=== PATIENT | male | born 1950 | race Hispanic/Latino ===

== ENCOUNTER 2016-10-30 08:51 | Observation (INO) | payer MEDICARE, OTHER ==
[2016-10-30 08:59] VITALS: BMI 24.9
[2016-10-30] MEDS ORDERED: Sodium Chloride 0.9% 1,000 ML IV STA (09:36)
--- NOTE | 2016-10-30 09:42 | ED PDOC ---
HPI: Male Pain Time Seen by Provider: 10/30/16 09:18 History Per: Patient (states that starting about 2 days ago he has experienced burning sensation on urination that is associated with chills. He also noticed bloody discharge stains on his underwear. He has had history of prostatitis in the past that has been treated with Tequin. The discomfort is located in the back area and is noticeable present at the end of urination. He has noticed generalized weakness and not being steady when he stands. States that he is followed by a urologist in [facility] (Dr. Leyva) who checks him every 6 months. His last visit there was in May 2016. His last checkup with his PCP was in Mar 2016. ) History/Exam Limitations: no limitations Onset/Duration Of Symptoms: Days (2), Persistent Current Symptoms Are (Timing): Still Present Severity: Moderate Quality Of Discomfort: Burning Associated Symptoms: Chills, Nausea, Loss Of Appetite, Urinary Symptoms (bloody discharge). denies: Vomiting, Diarrhea, Back Pain, Chest Pain, Constipation Past Medical History Reviewed: Historical Data, Nursing Documentation, Vital Signs Vital Signs: Last Vital Signs Temp 100.3 F H 10/30/16 08:57 Pulse 96 H 10/30/16 08:57 Resp BP 121/60 10/30/16 08:57 Pulse Ox 98 10/30/16 08:57 - Medical History Other PMH: prostatitis, prostate disease - Surgical History Other surgeries: bilaterally inguinal herniorrhaphy; nasal septal deviation correction - Family History Family History: States: No Known Family Hx - Living Arrangements Living Arrangements: With Family - Social History Current smoker - smoking cessation education provided: No Alcohol: None Drugs: Denies - Allergies Allergies/Adverse Reactions: Allergies Allergy/AdvReac Type Severity Reaction Status Date / Time No Known Allergies Allergy Verified 10/30/16 09:34 Review of Systems ROS Statement: Except As Marked, All Systems Reviewed And Found Negative Constitutional: Positive for: Chills, Weakness, Malaise Eyes: Negative for: Vision Change Cardiovascular: Negative for: Chest Pain, Palpitations, Orthopnea Respiratory: Negative for: Cough, Shortness of Breath Gastrointestinal: Positive for: Nausea. Negative for: Vomiting, Abdominal Pain , Diarrhea, Melena, Hematochezia, Hematemesis, Rectal Pain Genitourinary Male: Positive for: Dysuria, Penile Discharge (bloody only with urine; not with ejaculation). Negative for: Frequency, Incontinence, Scrotal Pain Musculoskeletal: Negative for: Neck Pain, Shoulder Pain, Back Pain Skin: Negative for: Rash Neurological: Positive for: Weakness. Negative for: Change in Speech, Altered Mental Status Physical Exam - Reviewed Nursing Documentation Reviewed: Yes Vital Signs Reviewed: Yes - Physical Exam Appears: Positive for: Well, Non-toxic, No Acute Distress Head Exam: Positive for: ATRAUMATIC, NORMAL INSPECTION, NORMOCEPHALIC Skin: Positive for: Normal Color, Warm, DRY Eye Exam: Positive for: EOMI, Normal appearance, PERRL ENT: Positive for: Normal ENT Inspection, Other (lips and tongue dry) Neck: Positive for: Normal, Painless ROM Cardiovascular/Chest: Positive for: Regular Rate, Rhythm Respiratory: Positive for: CNT, Normal Breath Sounds Gastrointestinal/Abdominal: Positive for: Normal Exam, Bowel Sounds, Soft Male Genital Exam: Positive for: normal genitalia. Negative for: bleeding, erythema, hernia mass, inguinal tenderness, scrotum tenderness (R), scrotum tenderness (L), testicular tenderness (R), testicular tenderness (L), urethral discharge Back: Positive for: Normal Inspection Extremity: Positive for: Normal ROM Neurologic/Psych: Positive for: Alert, Oriented - Laboratory Results Result Diagrams: 10/30/16 10:10 10/30/16 10:10 - ECG O2 Sat by Pulse Oximetry: 98 Medical Decision Making Medical Decision Making: Patient has low grade temp, still has chills. His WBC is elevated. He still feels tired and out of it. Will admit to med service for observation, IVF Disposition - Clinical Impression Clinical Impression: Dehydration syndrome, Prostatitis, Hematuria - Patient ED Disposition Is Patient to be Admitted: Yes Doctor Will See Patient In The: Hospital - Disposition Disposition: Transfer of Care Disposition Time: 10:30 Condition: GUARDED - Pt Status Changed To: Hospital Disposition Of: Observation - POA Present On Arrival: None
[2016-10-30 10:17] LABS: BASO # 0.1 K/uL (0.0-0.2); BASO % 0.5 % (0.0-2.0); HEMATOCRIT 43.5 % (35.0-51.0); LYMPH % 7.6 % (20.0-40.0); MEAN CELL VOLUME 89.5 fl (80.0-94.0); MEAN CORPUSCULAR HEMOGLOBIN 30.5 pg (27.0-31.0); MEAN CORPUSCULAR HGB CONC 34.1 g/dL (33.0-37.0); MEAN PLATELET VOLUME 8.3 fl (7.2-11.7); MONO # 0.7 K/uL (0.0-0.8); MONO % 4.9 % (0.0-10.0); NEUT # 11.8 K/uL (1.8-7.0); PLATELET COUNT 189 K/uL (130-400); RED CELL DISTRIBUTION WIDTH 12.9 % (11.5-14.5); WHITE BLOOD COUNT 13.6 K/uL (4.8-10.8)
[2016-10-30 10:19] LABS: VENOUS BLOOD GAS BASE EXCESS 0.8 mmol/L (0.0-2.0); VENOUS BLOOD GAS PCO2 53 mmHg (40-60); VENOUS BLOOD PH 7.33 (7.32-7.43)
[2016-10-30 10:30] LABS: BLOOD UREA NITROGEN 19 mg/dl (9-20); CALCIUM 9.4 mg/dL (8.4-10.2); CARBON DIOXIDE 23 mmol/L (22-30); CHLORIDE 104 mmol/L (98-107); GFR AFRICAN-AMERICAN > 60; GLUCOSE,RANDOM 99 mg/dL (75-110); POTASSIUM 4.5 MMOL/L (3.6-5.0); RBC URINE 71 /hpf (0-3); RENAL EPITHELIAL < 1 /hpf (0-3); SODIUM 137 mmol/l (132-148); URINE BILIRUBIN NEGATIVE (NEGATIVE); URINE BLOOD MODERATE (NEGATIVE); URINE COLOR YELLOW (YELLOW); URINE GLUCOSE (UA) NEG (Normal); URINE KETONE NEGATIVE (NEGATIVE); URINE LEUKOCYTE ESTERASE NEG Leu/uL (Negative); URINE PROTEIN 30 mg/dL (NEGATIVE); URINE UROBILINOGEN 0.2-1.0 mg/dL (0.2-1.0); WBC URINE 1 /hpf (0-5)
[2016-10-30] MEDS ORDERED: levoFLOXacin 750 mg in D5W 150 ML BAG IVPB STA (10:41)
[2016-10-30] MEDS ORDERED: levoFLOXacin 750 mg in D5W 750 MG/150 ML BAG IVPB ONE (10:44)
--- NOTE | 2016-10-30 11:16 | RAD ---
HISTORY: admission COMPARISON: 02/27/2010 FINDINGS: LUNGS: There is linear atelectasis/ scarring in the left lower lobe. No focal consolidation. PLEURA: No significant pleural effusion identified, no pneumothorax apparent. CARDIOVASCULAR: Normal. OSSEOUS STRUCTURES: No significant abnormalities. VISUALIZED UPPER ABDOMEN: Normal. OTHER FINDINGS: None. IMPRESSION: No active pulmonary disease.
[2016-10-30 12:39] LABS: NEUTROPHIL 83 % (42-75); REACTIVE LYMPHOCYTES 1 % (0-0); TOTAL CELLS COUNTED 100
[2016-10-30] MEDS: Sodium Chloride 0.45% 1,000 ML IV SCH ×2 (14:19→21:59)
[2016-10-30] MEDS ORDERED: Pneumococcal 23-Valent Vaccine IM ONE (15:31)
[2016-10-31] MEDS: Sodium Chloride 0.45% 1,000 ML IV SCH (06:23)
[2016-10-31 07:22] LABS: BASO % 0.7 % (0.0-2.0); EOS % 0.5 % (0.0-4.0); HEMATOCRIT 39.9 % (35.0-51.0); LYMPH # 1.3 K/uL (1.0-4.3); LYMPH % 17.7 % (20.0-40.0); MEAN CELL VOLUME 88.2 fl (80.0-94.0); MEAN CORPUSCULAR HEMOGLOBIN 30.7 pg (27.0-31.0); MEAN CORPUSCULAR HGB CONC 34.8 g/dL (33.0-37.0); MEAN PLATELET VOLUME 8.6 fl (7.2-11.7); MONO # 0.9 K/uL (0.0-0.8); MONO % 11.7 % (0.0-10.0); NEUT # 5.2 K/uL (1.8-7.0); NEUT % 69.4 % (50.0-75.0); NRBC % 0.1 % (0.0-0.0); WHITE BLOOD COUNT 7.5 K/uL (4.8-10.8)
[2016-10-31 07:28] LABS: BLOOD UREA NITROGEN 13 mg/dl (9-20); CALCIUM 8.7 mg/dL (8.4-10.2); CARBON DIOXIDE 25 mmol/L (22-30); CHLORIDE 107 mmol/L (98-107); GFR AFRICAN-AMERICAN > 60; GLUCOSE,RANDOM 100 mg/dL (75-110); SODIUM 139 mmol/l (132-148)
--- NOTE | 2016-10-31 08:07 | CP.PCM.HP ---
History of Present Illness - History of Present Illness History of Present Illness: CC: Dysuria History of Present Illness: A66 yoM with recurrent Prostatitis states that starting about 2 days ago he has experienced burning sensation on urination that is associated with chills. He also noticed bloody discharge stains on his underwear. He has had history of prostatitis in the past that has been treated with Levaquin. The discomfort is located in the back area and is noticeable present at the end of urination. He has noticed generalized weakness and not being steady when he stands. States that he is followed by a urologist in [facility] (Dr. Leyva) who checks him every 6 months. His last visit there was in May 2016. His last checkup with his PCP was in Mar 2016. Today he states feeling better. On IV Levaquin and IVF. Awaiting ID and Urology Evaluation. Present on Admission - Present on Admission Any Indicators Present on Admission: No Review of Systems - Review of Systems All systems: reviewed and no additional remarkable complaints except Past Patient History - Infectious Disease Hx of Infectious Diseases: None - Past Medical History & Family History Past Medical History?: Yes Past Family History: Reviewed and not pertinent - Past Social History Smoking Status: Never Smoked - CARDIAC Hx Cardiac Disorders: No - PULMONARY Hx Respiratory Disorders: No - NEUROLOGICAL Hx Neurological Disorder: No - HEENT Hx HEENT Problems: No Hx Glaucoma: Yes - RENAL Hx Chronic Kidney Disease: No - ENDOCRINE/METABOLIC Hx Endocrine Disorders: No - HEMATOLOGICAL/ONCOLOGICAL Hx Blood Disorders: No - INTEGUMENTARY Hx Dermatological Problems: No - MUSCULOSKELETAL/RHEUMATOLOGICAL Hx Musculoskeletal Disorders: No Hx Falls: No - GASTROINTESTINAL Hx Gastrointestinal Disorders: No - GENITOURINARY/GYNECOLOGICAL Hx Prostate Problems: Yes Other/Comment: Frequent Prostatitis - PSYCHIATRIC Hx Anxiety: Yes Hx Substance Use: No - SURGICAL HISTORY Other/Comment: Hx of Bilateral herniography,Hx of Sinus Sx/ Deviated Septum X 2 - ANESTHESIA Hx Anesthesia: Yes Hx Anesthesia Reactions: No Hx Malignant Hyperthermia: No Has any member of the family had a problem w/ anesthesia?: No Meds Home Medications: Home Medication List Medication Instructions Recorded Confirmed Type levoFLOXacin [Levaquin] 500 mg PO DAILY #14 tab 10/31/16 Rx Allergies/Adverse Reactions: Allergies Allergy/AdvReac Type Severity Reaction Status Date / Time No Known Allergies Allergy Verified 10/30/16 09:34 Physical Exam - Constitutional Appears: Well, No Acute Distress - Head Exam Head Exam: ATRAUMATIC, NORMAL INSPECTION, NORMOCEPHALIC - Eye Exam Eye Exam: EOMI, Normal appearance, PERRL Pupil Exam: NORMAL ACCOMODATION, PERRL - ENT Exam ENT Exam: Mucous Membranes Moist, Normal Exam - Neck Exam Neck exam: Positive for: Normal Inspection - Respiratory Exam Respiratory Exam: Clear to Auscultation Bilateral, NORMAL BREATHING PATTERN - Cardiovascular Exam Cardiovascular Exam: REGULAR RHYTHM, +S1, +S2 - GI/Abdominal Exam GI & Abdominal Exam: Normal Bowel Sounds, Soft. absent: Tenderness - Extremities Exam Extremities exam: Positive for: normal inspection - Back Exam Back exam: NORMAL INSPECTION - Neurological Exam Neurological exam: Alert, CN II-XII Intact, Normal Gait, Oriented x3, Reflexes Normal - Psychiatric Exam Psychiatric exam: Normal Affect, Normal Mood - Skin Skin Exam: Dry, Intact, Normal Color, Warm Results - Vital Signs Recent Vital Signs: Last Vital Signs Temp 98.6 F 10/31/16 00:11 Pulse 65 10/31/16 00:11 Resp 20 10/31/16 00:11 BP 101/62 10/31/16 00:11 Pulse Ox 98 10/31/16 00:11 - Labs Result Diagrams: 10/31/16 05:30 10/31/16 05:30 Labs: Laboratory Results - last 24 hr 10/31/16 10/31/16 05:30 05:30 WBC 7.5 RBC 4.53 Hgb 13.9 Hct 39.9 MCV 88.2 MCH 30.7 MCHC 34.8 RDW 13.0 Plt Count 159 MPV 8.6 Neut % (Auto) 69.4 Lymph % (Auto) 17.7 L [place] % (Auto) 11.7 H Eos % (Auto) 0.5 Baso % (Auto) 0.7 Neut # 5.2 Lymph # 1.3 [place] # 0.9 H Eos # 0.0 Baso # 0.0 Sodium 139 Potassium 4.0 Chloride 107 Carbon Dioxide 25 Anion Gap 12 BUN 13 Creatinine 1.0 Est GFR ( Amer) > 60 Est GFR (Non-Af Amer) > 60 Random Glucose 100 Calcium 8.7 - Imaging and Cardiology Chest x-ray Status: Report reviewed by me Additional comment: No Active disease Assessment & Plan (1) Acute prostatitis with hematuria Assessment and Plan: IVF IV Levaquin Tylenol PRN ID and Urology consulted Urine and Blood Cultures Status: Acute Priority: Medium (2) Dehydration syndrome Assessment and Plan: IVF Monitor BMP Status: Acute (3) Glaucoma Status: Acute
[2016-10-31] MEDS: levoFLOXacin 500 mg in D5W 500 MG/100 ML BAG IVPB SCH (08:32)
--- NOTE | 2016-10-31 12:53 | CP.PCM.CON ---
History of Present Illness - History of Present Illness History of Present Illness: Patient states that starting about 2 days ago he has experienced burning sensation on urination that is associated with chills. He also noticed bloody discharge stains on his underwear. He has had history of prostatitis in the past that has been treated with Tequin and Levaquin in the past The discomfort is located in the back area and is noticeable present at the end of urination. He has noticed generalized weakness and not being steady when he stands. States that he is followed by a urologist in [facility] (Dr. Leyva) who checks him every 6 months. His last visit there was in May 2016. His last checkup with his PCP was in Mar 2016.) Associated Symptoms: Chills, Nausea, Loss Of Appetite, Urinary Symptoms (bloody discharge). denies: Vomiting, Diarrhea, Back Pain, Chest Pain, Constipation - Medical History Other PMH: prostatitis, prostate disease Review of Systems - Review of Systems All systems: reviewed and no additional remarkable complaints except - Constitutional Constitutional: As Per HPI, Chills, Fever, Lethargy, Malaise, Weakness - EENT Eyes: absent: As Per HPI, Blind Spots, Blurred Vision, Change in Vision, Decreased Night Vision, Diplopia, Discharge, Dry Eye, Exophthalmos, Floaters, Irritation, Itchy Eyes, Loss of Peripheral Vision, Pain, Photophobia, Requires Corrective Lenses, Sees Flashes, Spots in Vision, Tunnel Vision, Other Visual Disturbances, Loss of Vision, Other Ears: absent: As Per HPI, Decreased Hearing, Ear Discharge, Ear Pain, Tinnitus, Abnormal Hearing, Disequilibrium, Dizziness, Other Nose/Mouth/Throat: absent: As Per HPI, Epistaxis, Nasal Congestion, Nasal Discharge, Nasal Obstruction, Nasal Trauma, Nose Pain, Post Nasal Drip, Sinus Pain, Sinus Pressure, Bleeding Gums, Change in Voice, Dental Pain, Dry Mouth, Dysphagia, Halitosis, Hoarsness, Lip Swelling, Mouth Lesions, Mouth Pain, Odynophagia, Sore Throat, Throat Swelling, Tongue Swelling, Facial Pain, Neck Pain, Neck Mass, Other - Cardiovascular Cardiovascular: absent: As Per HPI, Acrocyanosis, Chest Pain, Chest Pain at Rest , Chest Pain with Activity, Claudication, Diaphoresis, Dyspnea, Dyspnea on Exertion, Edema, Irregular Heart Rhythm, Pain Radiating to Arm/Neck/Jaw, Leg Edema, Leg Ulcers, Lightheadedness, Orthopnea, Palpitations, Paroxysmal Nocturnal Dyspnea, Pedal Edema, Radiating Pain, Rapid Heart Rate, Slow Heart Rate, Syncope, Other - Respiratory Respiratory: absent: As Per HPI, Cough, Dyspnea, Hemoptysis, Dyspnea on Exertion , Wheezing, Snoring, Stridor, Pain on Inspiration, Chest Congestion, Excessive Mucous Production, Change in Mucous Color, Pain with Coughing, Other - Gastrointestinal Gastrointestinal: absent: As Per HPI, Abdominal Pain, Belching, Bloating, Change in Bowel Habits, Change in Stool Character, Coffee Ground Emesis, Constipation, Cramping, Diarrhea, Dyspepsia, Dysphagia, Early Satiety, Excessive Flatus, Fecal Incontinence, Heartburn, Hematemesis, Hematochezia, Loose Stools, Melena, Nausea, Odynophagia, Temesmus, Vomiting, Other - Genitourinary Genitourinary: As Per HPI - Musculoskeletal Musculoskeletal: absent: As Per HPI, Abnormal Gait, Arthralgias, Atrophy, Back Pain, Deformity, Joint Swelling, Limited Range of Motion, Loss of Height, Muscle Cramps, Muscle Weakness, Myalgias, Neck Pain, Numbness, Radiating Pain into Limb, Stiffness, Tingling, Other - Integumentary Integumentary: absent: As Per HPI, Acne, Alopecia, Bleeding Lesions, Change in Hair, Change in Nails, Change in Pigmentation, Changing Lesions, Dry Skin, Erythema, Furuncle, Hirsutism, Lesions, New Lesions, Non-Healing Lesions, Photosensitivity, Pruritus, Rash, Skin Pain, Skin Ulcer, Sores, Striae, Swelling , Unusual Bruising, Wounds, Jaundice, Other - Neurological Neurological: absent: As Per HPI, Abnormal Gait, Abnormal Hearing, Abnormal Movements, Abnormal Speech, Behavioral Changes, Burning Sensations, Confusion, Convulsions, Disequilibrium, Dizziness, Numbness, Focal Weakness, Frequent Falls , Headaches, Lack of Coordination, Loss of Vision, Memory Loss, Paresthesias, Radicular Pain, Restless Legs, Sensory Deficit, Syncope, Tingling, Tremor, Vertigo, Weakness, Other Visual Disturbances, Other - Psychiatric Psychiatric: absent: As Per HPI, Abnormal Sleep Pattern, Anhedonia, Anxiety, Auditory Hallucinations, Behavioral Changes, Change in Appetite, Change in Libido, Confusion, Depression, Difficulty Concentrating, Hallucinations, Homicidal Ideation, Hopelessness, Irritability, Memory Loss, Mood Swings, Panic Attacks, Paranoia, Suicidal Ideation, Visual Hallucinations, Tactile Hallucinations, Other - Endocrine Endocrine: absent: As Per HPI, Change in Body Appearance, Change in Libido, Cold Intolorance, Deepening of Voice, Excessive Sweating, Fatigue, Flushing, Heat Intolorance, Increase in Ring/Shoe/Hat Size, Palpitations, Polydipsia, Polyphagia, Polyuria, Other - Hematologic/Lymphatic Hematologic: absent: As Per HPI, Easy Bleeding, Easy Bruising, Lymphadenopathy, Other Past Patient History - Infectious Disease Hx of Infectious Diseases: None - Past Medical History & Family History Past Medical History?: Yes - Past Social History Smoking Status: Never Smoked - CARDIAC Hx Cardiac Disorders: No - PULMONARY Hx Respiratory Disorders: No - NEUROLOGICAL Hx Neurological Disorder: No - HEENT Hx HEENT Problems: No Hx Glaucoma: Yes - RENAL Hx Chronic Kidney Disease: No - ENDOCRINE/METABOLIC Hx Endocrine Disorders: No - HEMATOLOGICAL/ONCOLOGICAL Hx Blood Disorders: No - INTEGUMENTARY Hx Dermatological Problems: No - MUSCULOSKELETAL/RHEUMATOLOGICAL Hx Musculoskeletal Disorders: No Hx Falls: No - GASTROINTESTINAL Hx Gastrointestinal Disorders: No - GENITOURINARY/GYNECOLOGICAL Hx Prostate Problems: Yes Other/Comment: Frequent Prostatitis - PSYCHIATRIC Hx Anxiety: Yes Hx Substance Use: No - SURGICAL HISTORY Other/Comment: Hx of Bilateral herniography,Hx of Sinus Sx/ Deviated Septum X 2 - ANESTHESIA Hx Anesthesia: Yes Hx Anesthesia Reactions: No Hx Malignant Hyperthermia: No Has any member of the family had a problem w/ anesthesia?: No Meds Allergies/Adverse Reactions: Allergies Allergy/AdvReac Type Severity Reaction Status Date / Time No Known Allergies Allergy Verified 10/30/16 09:34 - Medications Medications: Current Medications Acetaminophen (Tylenol 325mg Tab) 650 mg PO Q6 PRN PRN Reason: Pain, Mild (1-3) Last Admin: 10/31/16 06:21 Dose: 650 mg Sodium Chloride (Sodium Chloride 0.45%) 1,000 mls @ 125 mls/hr IV .Q8H [facility] Stop: 10/31/16 13:43 Last Admin: 10/31/16 06:23 Dose: 125 mls/hr Levofloxacin/Dextrose (Levaquin 500mg) 500 mg in 100 mls @ 100 mls/hr IVPB DAILY MATEO Last Admin: 10/31/16 08:32 Dose: 100 mls/hr Physical Exam - Constitutional Appears: Non-toxic, Chronically Ill - Head Exam Head Exam: ATRAUMATIC, NORMAL INSPECTION, NORMOCEPHALIC - Eye Exam Eye Exam: PERRL. absent: Scleral icterus - ENT Exam ENT Exam: Mucous Membranes Dry, Normal External Ear Exam, Normal Oropharynx - Neck Exam Neck exam: Negative for: Lymphadenopathy, Thyromegaly - Respiratory Exam Respiratory Exam: Decreased Breath Sounds, Clear to Auscultation Bilateral - Cardiovascular Exam Cardiovascular Exam: REGULAR RHYTHM, +S1, +S2 - GI/Abdominal Exam GI & Abdominal Exam: Diminished Bowel Sounds, Soft. absent: Tenderness - Rectal Exam Rectal Exam: Deferred - Exam Exam: NORMAL INSPECTION - Extremities Exam Extremities exam: Positive for: pedal pulses present. Negative for: calf tenderness, pedal edema, tenderness - Back Exam Back exam: absent: CVA tenderness (L), CVA tenderness (R), paraspinal tenderness - Neurological Exam Neurological exam: Alert, CN II-XII Intact, Oriented x3, Reflexes Normal - Psychiatric Exam Psychiatric exam: Normal Mood - Skin Skin Exam: Dry, Intact Results - Vital Signs Recent Vital Signs: Last Vital Signs Temp 98.2 F 10/31/16 08:36 Pulse 71 10/31/16 08:36 Resp 19 10/31/16 08:36 BP 105/66 10/31/16 08:36 Pulse Ox 95 10/31/16 08:36 - Labs Result Diagrams: 10/31/16 05:30 10/31/16 05:30 Labs: Laboratory Results - last 24 hr 10/31/16 10/31/16 05:30 05:30 WBC 7.5 RBC 4.53 Hgb 13.9 Hct 39.9 MCV 88.2 MCH 30.7 MCHC 34.8 RDW 13.0 Plt Count 159 MPV 8.6 Neut % (Auto) 69.4 Lymph % (Auto) 17.7 L [place] % (Auto) 11.7 H Eos % (Auto) 0.5 Baso % (Auto) 0.7 Neut # 5.2 Lymph # 1.3 [place] # 0.9 H Eos # 0.0 Baso # 0.0 Sodium 139 Potassium 4.0 Chloride 107 Carbon Dioxide 25 Anion Gap 12 BUN 13 Creatinine 1.0 Est GFR ( Amer) > 60 Est GFR (Non-Af Amer) > 60 Random Glucose 100 Calcium 8.7 Assessment & Plan (1) Dehydration syndrome Status: Acute (2) Hematuria Status: Acute (3) Prostatitis Status: Acute - Assessment and Plan (Free Text) Assessment: cultures so far negative improving on antibiotic rx will need follow up for hematuria cont IV then PO rx for 3-4 weeks ( chrinic recurrent prostatitis )
[2016-11-01 00:04] VITALS: BP 119/70; PULSE 65; RESP 20; TEMP 98.7; O2SAT 98
--- NOTE | 2016-11-01 07:07 | CP.PCM.DIS ---
Provider - Provider Date of Admission: 10/30/16 10:50 Attending physician: Beverly Yousif MD Time Spent in preparation of Discharge (in minutes): 30 Diagnosis - Discharge Diagnosis (1) Acute prostatitis with hematuria Status: Acute Priority: Medium (2) Dehydration syndrome Status: Acute (3) Glaucoma Status: Acute Hospital Course - Lab Results Lab Results: Most Recent Lab Values WBC 7.5 K/uL (4.8-10.8) 10/31/16 05:30 RBC 4.53 Mil/uL (4.40-5.90) 10/31/16 05:30 Hgb 13.9 g/dL (12.0-18.0) 10/31/16 05:30 Hct 39.9 % (35.0-51.0) 10/31/16 05:30 MCV 88.2 fl (80.0-94.0) 10/31/16 05:30 MCH 30.7 pg (27.0-31.0) 10/31/16 05:30 MCHC 34.8 g/dL (33.0-37.0) 10/31/16 05:30 RDW 13.0 % (11.5-14.5) 10/31/16 05:30 Plt Count 159 K/uL (130-400) 10/31/16 05:30 MPV 8.6 fl (7.2-11.7) 10/31/16 05:30 Neut % (Auto) 69.4 % (50.0-75.0) 10/31/16 05:30 Lymph % (Auto) 17.7 % (20.0-40.0) L 10/31/16 05:30 [place] % (Auto) 11.7 % (0.0-10.0) H 10/31/16 05:30 Eos % (Auto) 0.5 % (0.0-4.0) 10/31/16 05:30 Baso % (Auto) 0.7 % (0.0-2.0) 10/31/16 05:30 Neut # 5.2 K/uL (1.8-7.0) 10/31/16 05:30 Lymph # 1.3 K/uL (1.0-4.3) 10/31/16 05:30 [place] # 0.9 K/uL (0.0-0.8) H 10/31/16 05:30 Eos # 0.0 K/uL (0.0-0.7) 10/31/16 05:30 Baso # 0.0 K/uL (0.0-0.2) 10/31/16 05:30 Neutrophils % (Manual) 83 % (42-75) H 10/30/16 10:10 Band Neutrophils % 3 % (0-2) H 10/30/16 10:10 Lymphocytes % (Manual) 8 % (20-50) L 10/30/16 10:10 Reactive Lymphs % 1 % (0-0) H 10/30/16 10:10 Monocytes % (Manual) 5 % (0-10) 10/30/16 10:10 Platelet Estimate Normal (NORMAL) 10/30/16 10:10 Anisocytosis (manual) Slight 10/30/16 10:10 pO2 15 mm/Hg (30-55) L 10/30/16 09:41 VBG pH 7.33 (7.32-7.43) 10/30/16 09:41 VBG pCO2 53 mmHg (40-60) 10/30/16 09:41 VBG HCO3 23.4 mmol/L 10/30/16 09:41 VBG Total CO2 29.5 mmol/L (22-28) H 10/30/16 09:41 VBG O2 Sat (Calc) 29.1 % (40-65) L 10/30/16 09:41 VBG Base Excess 0.8 mmol/L (0.0-2.0) 10/30/16 09:41 VBG Potassium 4.2 mmol/L (3.6-5.2) 10/30/16 09:41 Sodium 133.0 mmol/L (132-148) 10/30/16 09:41 Chloride 103.0 mmol/L (98-107) 10/30/16 09:41 Glucose 103 mg/dL (75-110) 10/30/16 09:41 Lactate 1.3 mmol/L (0.7-2.1) 10/30/16 09:41 FiO2 21.0 % 10/30/16 09:41 Sodium 139 mmol/l (132-148) 10/31/16 05:30 Potassium 4.0 MMOL/L (3.6-5.0) 10/31/16 05:30 Chloride 107 mmol/L (98-107) 10/31/16 05:30 Carbon Dioxide 25 mmol/L (22-30) 10/31/16 05:30 Anion Gap 12 (10-20) 10/31/16 05:30 BUN 13 mg/dl (9-20) 10/31/16 05:30 Creatinine 1.0 mg/dL (0.8-1.5) 10/31/16 05:30 Est GFR ( Amer) > 60 10/31/16 05:30 Est GFR (Non-Af Amer) > 60 10/31/16 05:30 Random Glucose 100 mg/dL (75-110) 10/31/16 05:30 Calcium 8.7 mg/dL (8.4-10.2) 10/31/16 05:30 Venous Blood Potassium 4.2 mmol/L (3.6-5.2) 10/30/16 09:41 Urine Color Yellow (YELLOW) 10/30/16 10:10 Urine Clarity Slighty-cloudy (Clear) 10/30/16 10:10 Urine pH 5.0 (5.0-8.0) 10/30/16 10:10 Ur Specific [place] 1.021 (1.003-1.030) 10/30/16 10:10 Urine Protein 30 mg/dL (NEGATIVE) 10/30/16 10:10 Urine Glucose (UA) Neg mg/dL (Normal) 10/30/16 10:10 Urine Ketones Negative mg/dL (NEGATIVE) 10/30/16 10:10 Urine Blood Moderate (NEGATIVE) 10/30/16 10:10 Urine Nitrate Negative (NEGATIVE) 10/30/16 10:10 Urine Bilirubin Negative (NEGATIVE) 10/30/16 10:10 Urine Urobilinogen 0.2-1.0 mg/dL (0.2-1.0) 10/30/16 10:10 Ur Leukocyte Esterase Neg Naheed/uL (Negative) 10/30/16 10:10 Urine RBC (Auto) 71 /hpf (0-3) H 10/30/16 10:10 Urine Microscopic WBC 1 /hpf (0-5) 10/30/16 10:10 Ur Squamous Epith Cells < 1 /hpf (0-5) 10/30/16 10:10 Ur Renal Epithelial Cell < 1 /hpf (0-3) 10/30/16 10:10 Discharge Exam - Head Exam Head Exam: ATRAUMATIC, NORMAL INSPECTION, NORMOCEPHALIC Discharge Plan - Discharge Medications Prescriptions: levoFLOXacin [Levaquin] 500 mg PO DAILY #14 tab - Follow Up Plan Condition: GUARDED Disposition: HOME/ ROUTINE Instructions: Levofloxacin (By mouth), Dehydration (DC), Prostatitis (DC)
[2016-11-01] MEDS: levoFLOXacin 500 mg in D5W 500 MG/100 ML BAG IVPB SCH (08:52)
--- NOTE | 2016-11-01 11:08 | CARD ---
APPROVED REPORT EKG Measurement Heart [id number] <Conclusion> Normal sinus rhythm Normal ECG
--- NOTE | 2016-11-01 12:01 | CON ---
DATE: 10/31/2016 COMPREHENSIVE UROLOGY CONSULTATION TIME OF CONSULTATION: Roughly 2:05 p.m. BRIEF HISTORY: The patient is a 66-year-old white male with a past history of chronic prostatitis and acute prostatitis, treated with antibiotics and also history of an elevated PSA and rising PSA since 1999 status post [id number] Shawn Payton in [facility] on [address] and [facility] for rising PSAs above 5. The patient also had a PSA of 21, but this was drawn while the patient had an acute episode of prostatitis and after treatment with the proper antibiotic, his PSA went back down to his usual range between 5 and 6. The patient also said he had a special blood test, which most likely was a 4Kscore blood test, which was also low recently. The patient now developed symptoms of prostatitis roughly on 10/30/2016 requiring him to come to [facility] emergency room where he was found to have an elevated temp of 100.3 and a white count above 13,000, requiring admission especially with his history of recurrent episodes of acute prostatitis. The patient did have an elevated temperature of 101.2 at home. The patient was placed on IV Levaquin and has responded well to this antibiotic. His temperature on 10/30/2016 after admission was 98.6 and his current temperature on 10/31/2016 is 98.2 and he has remained afebrile during this hospital admission. His other past surgical history includes 2 nasal surgeries and bilateral inguinal hernia surgery and also iridotomies for treatment of closed-angle glaucoma in addition to his 2 prostate needle biopsies. ALLERGIES: HE HAS NO KNOWN ALLERGIES TO ANY MEDICATIONS. PAST MEDICAL HISTORY: He has no other medical history. SOCIAL HISTORY: He is just a social drinker. PHYSICAL EXAMINATION: GENERAL: He is a well-developed, well-nourished white male. He is alert and oriented. HEENT: Grossly within normal limits. NECK: Supple. Thyroid not palpable. ABDOMEN: Soft, nondistended, nontender. No CVA tenderness. No suprapubic tenderness. GENITALIA: He is circumcised with a normal glans meatus without any rashes or lesions visualized. His testicles are down bilaterally. The right testicle is much lower than the left testicle, which apparently is much higher riding than the right testicle and he has had this for his entire life. RECTAL: Showed normal rectal tone without fluctuance or masses. His prostate is enlarged, wide, smooth, symmetrical, nontender without nodules or indurations with an almost absent median sulcus, although the median sulcus is slightly palpable. VITAL SIGNS: His remaining vital signs include pulse rate of 71 which is down from 91 during admission and his blood pressure is now 105/66 and his respiratory rate is 19 and his O2 sat on room air is 95%. LABORATORY DATA: His microbiology; urine culture shows no growth and blood cultures also showed no growth. Gram stain was pending. His laboratory evaluation; now his white count has dropped from 13.6 on admission to 7.5 today, 10/31/2016 and his hemoglobin is 13.9, hematocrit 39.9 with a platelet count of 159,000. His sodium is 139, potassium 4.0, chloride 107, CO2 of 25, BUN and creatinine 13 and 1.0 respectively with a GFR of greater than 60. His random glucose was 100, calcium was 8.7. His urinalysis on 10/30/2016 was yellow. Clarity was slightly cloudy. pH was 5.0. Specific gravity 1.021. Protein was 30. Glucose was negative. Ketones were negative. Blood was moderate. Nitrite was negative and bilirubin was negative. Urobilinogen was 0.2-1.0. Leukocyte esterase was negative. There were 71 rbc's, 1 wbc per high power field. The patient's initial symptoms and pain in the perineal area have completely resolved on the IV Levaquin. DIAGNOSTIC IMPRESSION: 1. Acute prostatitis. 2. Benign prostatic hyperplasia. 3. Elevated PSA. PLAN: For this patient is to discharge the patient home on Levaquin 500 mg daily for 14 days with a refill x1 as needed. Patient can be seen in office followup with Dr. Shawn Payton within 2 weeks. Kevin De Los Santos MD MTDIda
[2016-11-01 22:01] LABS: ESTIM. PROBABILITY CANCER >50 Percent
== END 2016-11-01 14:07 | disposition home or self-care (01) ==
LOC: H.ER 08:51 → H.ERHOLD 10:50 → H.MEDSURG1 12:11
PROVIDERS: ADMIT Internal Medicine; ATTEND Internal Medicine
DX: N41.0 Acute prostatitis (principal); N40.0 Benign prostatic hyperplasia without lower urinary tract symptoms; E86.0 Dehydration; H40.9 Unspecified glaucoma; F41.9 Anxiety disorder, unspecified; J34.2 Deviated nasal septum; N41.1 Chronic prostatitis; R31.9 Hematuria, unspecified; Z23 Encounter for immunization
CPT/HCPCS: 36415; 71010; 80048; 81003; 82803; 84153; 84154; 85025; 87040; 87086; 90732; 93005; 96360; 96361; 96365; 99284; G0009; G0378; J7030; J7040